=== PATIENT | male | born 1970 | race Caucasian/White ===

== ENCOUNTER 2022-05-09 16:45 | Emergency (ER) | payer MEDICAID, SELFPAY ==
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
[2022-05-09 16:48] VITALS: BP 129/42; PULSE 80; RESP 18; TEMP 36.6; O2SAT 95
[2022-05-09] MEDS: Ketorolac 30 MG/ML VIAL IM (17:01)
[2022-05-09 19:31] LABS: Kit/Specimen SENT
--- NOTE | 2022-05-09 19:49 | DI.VRAD_ITS ---
PROCEDURE INFORMATION: Exam: XR Lumbosacral Spine Exam date and time: 05/09/2022 7:30 PM Age: 51 years old Clinical indication: Other: Trauma TECHNIQUE: Imaging protocol: Radiologic exam of the lumbosacral spine. Views: 2 or 3 views. COMPARISON: No relevant prior studies available. FINDINGS: Bones/joints: No acute fracture or subluxation. Disc spaces are well preserved. Soft tissues: Unremarkable. IMPRESSION: No acute bony pathology. Dictated and Authenticated by: Bre Roque MD. Ordering:PIEDAD Calle MD
--- OUTSIDE RECORDS SUMMARY | 2022-05-09 21:50 | XMS_ITS | Continuity of Care Document ---
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 Name Role Phone Stevo Clemente DO Primary Care Physician Encounter [facility] NBR [id number] Date(s): 01/21/22 - 01/21/22 [facility] [address], [place] [address] Encounter Diagnosis Chronic obstructive lung disease(Discharge Diagnosis) - 01/21/22 Chronic pain(Discharge Diagnosis) - 01/21/22 Low back pain(Discharge Diagnosis) - 01/21/22 Discharge Disposition: Home or Self Care Attending Physician: Stevo Clemente DO Allergies, Adverse Reactions, Alerts Substance Reaction Severity Status amitriptyline thick tongue Moderate Active Assessment and Plan Future Appointments Functional Status 01/21/22 Other exposure to Infectious Disease Non e Immunizations Given and Recorded Vaccine Date Status Refusal Reason Td(adult) unspecified formulation 09/03/15 Recorde d tetanus/diphth/pertuss (Tdap) adult/adol 11/15/10 Recorded Medications Advair HFA 115 mcg-21 mcg/inh inhalation aerosol 12 g, inhale 2 puffs by mouth and INTO THE LUNGS twice a day, 0 Refill(s) Start Date: 01/17/22 Status: Ordered MS Contin 15 mg oral tablet, extended release 15 mg = 1 tab, Oral, every 12 hr, # 60 tab, 0 Refill(s), Pharmacy: [facility] #[id number] Start Date: 01/07/22 Stop Date: 02/06/22 Status: Ordered multivitamin adult, oral tablet 1 tab, Oral, Daily, 0 Refill(s) Start Date: 01/17/22 Status: Ordered omeprazole 20 mg oral delayed release capsule 20 mg = 1 cap, Oral, Daily, 30 minutes before morning meal, # 30 cap, 0 Refill(s) Start Date: 01/17/22 Status: Ordered oxyCODONE 10 mg oral tablet 10 mg = 1 tab, Oral, every 8 hr, PRN pain, # 90 tab, 0 Refill(s), Pharmacy: [facility] #[id number] Start Date: 01/15/22 Stop Date: 02/14/22 Status: Ordered ProAir HFA 90 mcg/inh inhalation aerosol See Instructions, inhale 1 puff by mouth every 4 hours if needed, # 8.5 g, 3 Refill(s), Pharmacy: [facility] #[id number] Start Date: 01/02/22 Status: Ordered Problem List Condition Confirmation Course Effective Dates Status Health [facility] Informant Ankle pain Confirmed Active Chronic obstructive lung disease Confirmed Active Chronic pain Confirmed Active Low back pain Confirmed Active Smoker Confirmed Active Tinnitus of left ear Confirmed Active Vital Signs Most recent to oldest [Reference Range]: 1 Peripheral Pulse Rate [60-100 bpm] 81 bp m (01/21/22 8:42 AM) Blood Pressure [90-140/60-90 mmHg] 128/7 8mmHg (01/21/22 8:42 AM) Weight 115 kg (01/21/22 8:42 AM) Weight Measured (lbs) 253.531 lb (01/21/22 8:42 AM) Social History Social History Type Response Tobacco Current everyday tob acco user Tobacco Use:. 7-10 a day per day. Sex Hospital Discharge Instructions Follow Up Care 01/03/2022 07:16:20 With:Stevo Clemente DO Address: [address] [place] [id number] When:6 Months Physician Outpatient Note * Stevo Clemente DO: PERFORM Event Display: Office Clinic Note Physician Authored Date: [id number] SHIRA GAFFNEY :1970 Age:51 years Sex:Male Visit Date:01/21/2022 Primary Care Physician: Stevo Clemente DO Chief Complaint Follow up [facility] History of Present Illness Patient is a 51-year-old male who comes in today for follow-up.?? He says he feels well.?? He has no specific concerns. Pulmonary: Using his inhalers as prescribed.?? He feels that his breathing is pretty good. Musculoskeletal: Taking his analgesics as prescribed.?? He says that it helps him remain functional.?? Feels that the dose is adequate. Review of Systems See HPI otherwise negative. Physical Exam Vitals & Measurements HR:??81??(Peripheral)?? BP:??128/78?? SpO2:??94%?? WT:??115??kg?? General: Alert and oriented, well nourished,?No??acute distress Lungs:??Clear??to auscultation and percussion,?Non-labored?? respiration Heart:?Normal?? rate,?Regular??rhythm,?No??murmur,?No??gallop,?No??edema Musculoskeletal:?Normal?? range of motion and strength,?No??tenderness,?No??swelling Psychiatric: Cooperative, appropriate mood and affect Assessment/Plan 1.??Chronic obstructive lung disease??J44.9 Breathing is at baseline.?? We will continue current regimen.?? We will follow- up in 6 months or sooner as needed. 2.??Chronic pain??G89.29 Symptoms are reasonably well controlled.?? Continue current analgesic regimen. 3.??Low back pain??M54.50 Follow Up Instructions With When Contact Information Stevo Clemente, DO Within 6 Months [address] [place] [address] Additional Instructions: Problem List/Past Medical History Ongoing Ankle pain Chronic obstructive lung disease Chronic pain Low back pain Smoker Tinnitus of left ear Historical No qualifying data Medications Advair HFA 115 mcg-21 mcg/inh inhalation aerosol MS Contin 15 mg oral tablet, extended release, 15 mg= 1 tab, Oral, every 12 hr multivitamin adult, oral tablet, 1 tab, Oral, Daily omeprazole 20 mg oral delayed release capsule, 20 mg= 1 cap, Oral, Daily oxyCODONE 10 mg oral tablet, 10 mg= 1 tab, Oral, every 8 hr, PRN ProAir HFA 90 mcg/inh inhalation aerosol, See Instructions Allergies amitriptyline??(thick tongue) Social History Alcohol Current, Beer- Comments: 12 a week. Electronic Cigarette/Vaping Electronic Cigarette Use: Never. Tobacco Current everyday tobacco user Tobacco Use:. 7-10 a day per day. Immunizations Vaccine Date Status Td(adult) unspecified formulation 09/03/2015 Recorded tetanus/diphth/pertuss (Tdap) adult/adol 11/15/2010 Recorded Electronically Signed on 01/21/22 09:01 AM Stevo Clemente DO Patient Care team information Personnel Name: Stevo Clemente DO Address: Address: [address] [place] [id number]
--- OUTSIDE RECORDS SUMMARY | 2022-05-09 21:50 | XMS_ITS ---
Author Name Stevo Posey Address [address], [place] [id number] Organization [facility] Address [address], [place] [id number] Care Team Providers Care Bradder Name Role Phone Stevo Posey Unavailable [phone] PROBLEMS Type Condition ICD9-CM Code AID69-KG Code Onset Dates Condition Status SNOMED Code Problem Smoker F17.200 Active 28409039 Problem Chronic obstructive pulmonary disease, unspecified COPD type J44.9 Active 72958862 Problem Low back pain M54.5 Active 595655815 Problem Pain in right ankle and joints of right foot M25.571 Active 540407396 Problem Other chronic pain G89.29 Active 07157947 Problem Tinnitus of left ear H93.12 Active [id number] ALLERGIES Substance Reaction Event Type Date Status Amitriptyline HCl thick tongue Drug Allergy June, A ctive ENCOUNTERS Encounter Location Date Diagnosis [facility] [address] [place] [address] [id number] Oct, Other chronic pain G89.29 [facility] [address] [place] [address] [id number] Oct, Other chronic pain G89.29 [facility] [address] [place] [address] [id number] Oct, [facility] [address] [place] [address] [id number] Sep, Other chronic pain G89.29 [facility] [address] [place] [address] [id number] Sep, Other chronic pain G89.[address] [id number] Sep, Other chronic pain G89.[address] [id number] Aug, Other chronic pain G89.[address] [id number] Jul, Other chronic pain G89.29 [facility] [address] [id number] June, Pedal edema R60.0 ; Chronic obstructive pulmonary disease, unspecified COPD type J44.9 ; Low back pain M54.5 and Other chronic pain G89.[address] [id number] June, Other chronic pain G89.[address] [id number] May, Other chronic pain G89.[address] [id number] Apr, Other chronic pain G89.[address] [id number] Mar, Chronic obstructive pulmonary disease, unspecified COPD type J44.[address] [id number] Mar, Low back pain M54.5 ; Chronic obstructive pulmonary disease, unspecified COPD type J44.9 and Smoker F17.[address] [id number] Mar, Other chronic pain G89.[address] [id number] Feb, Other chronic pain G89.[address] [id number] Feb, Other chronic pain G89.[address] [id number] Jan, Other chronic pain G89.[address] [id number] Jan, Other chronic pain G89.[address] [id number] Dec, Other chronic pain G89.29 and Heartburn R12 [address] [id number] Nov, Other chronic pain G89.[address] [id number] Oct, Other chronic pain G89.[address] [id number] Oct, 2020 Other chronic pain G89.[address] [id number] Sep, Other chronic pain G89.[address] [id number] Aug, Other chronic pain G89.[address] [id number] Aug, [address] [id number] Aug, [address] [id number] Jul, [address] [id number] Jul, 2020 Other chronic pain G89.29 and SOB (shortness of breath) on exertion R06.[address] [id number] 07 Jul, 2020 Other chronic pain G89.29 and Low back pain M54.[address] [id number] June, Low back pain M54.5 and Other chronic pain G89.[address] [id number] May, Low back pain M54.5 and Other chronic pain G89.[address] [id number] Apr, Other chronic pain G89.29 and Low back pain M54.[address] [id number] Apr, Low back pain M54.5 ; Other chronic pain G89.29 and Pain in right ankle and joints of right foot M25.571 [facility] [address] [id number] Mar, 2020 Other chronic pain G89.29 and Low back pain M54.[address] [id number] Feb, 2020 Other chronic pain G89.29 and Low back pain M54.[address] [id number] 15 Jan, 2020 Other chronic pain G89.29 and Low back pain M54.[address] [id number] Jan, Low back pain M54.5 and Pain in right ankle and joints of right foot M25.[address] [id number] Dec, Other chronic pain G89.29 and Low back pain M54.[address] [id number] Nov, Other chronic pain G89.29 and Low back pain M54.[address] [id number] Oct, Other chronic pain G89.29 and Low back pain M54.[address] [id number] Oct, Low back pain M54.5 and Other chronic pain G89.[address] [id number] Sep, Other chronic pain G89.29 and Low back pain M54.[address] [id number] Aug, Other chronic pain G89.29 and Low back pain M54.[address] [id number] Jul, [address] [id number] Jul, Other chronic pain G89.29 and Low back pain M54.[address] [id number] Jul, Other chronic pain G89.29 and Low back pain M54.[address] [id number] June, [facility] [address] [place] [address] [id number] June, Other chronic pain G89.29 [facility] [address] [place] [address] [id number] May, [facility] [address] [id number] May, Other chronic pain G89.29 [facility] [address] [id number] Apr, Low back pain M54.5 and Other chronic pain G89.29 [facility] [address] [place] [address] [id number] Apr, Low back pain M54.5 and Other chronic pain G89.29 [facility] [address] [id number] Mar, Low back pain M54.5 and Other chronic pain G89.29 [facility] [address] [id number] Feb, Other chronic pain G89.[address] [id number] Feb, Low back pain M54.[address] [id number] Feb, Low back pain M54.[address] [id number] Jan, Low back pain M54.5 and Other chronic pain G89.[address] [id number] Jan, Other chronic pain G89.29 [facility] [address] [id number] Dec, [address] [id number] Dec, [facility] [address] [id number] Dec, Low back pain M54.5 and Other chronic pain G89.[address] [id number] Dec, [address] [id number] Dec, Other chronic pain G89.29 [facility] [address] [id number] Nov, [facility] [address] [place] [address] [id number] Nov, Other chronic pain G89.29 [facility] [address] [place] [address] [id number] Oct, [facility] [address] [id number] Oct, Other chronic pain G89.29 [facility] [address] [id number] Sep, Other chronic pain G89.29 [facility] [address] [place] [address] [id number] Sep, Low back pain M54.5 and Other chronic pain G89.29 [facility] [address] [place] [address] [id number] Sep, Other chronic pain G89.[address] [id number] Aug, Other chronic pain G89.[address] [id number] Jul, Other chronic pain G89.29 [facility] [address] [place] [address] [id number] June, Low back pain M54.5 [facility] [address] [id number] June, [address] [id number] June, Pain in right ankle and joints of right foot M25.571 and Low back pain M54.[address] [id number] June, Other chronic pain G89.29 [facility] [address] [place] [address] [id number] May, Other chronic pain G89.29 [facility] [address] [place] [address] [id number] May, Other chronic pain G89.29 [facility] [address] [place] [address] [id number] Apr, Other chronic pain G89.29 [facility] [address] [place] [address] [id number] Mar, Other chronic pain G89.29 and Low back pain M54.5 [facility] [address] [place] [address] [id number] Feb, [facility] [address] [id number] Feb, [facility] [address] [id number] Jan, Other chronic pain G89.[address] [id number] Jan, Other chronic pain G89.[address] [id number] Jan, Other chronic pain G89.29 [facility] [address] [id number] Dec, Other chronic pain G89.29 [facility] [address] [id number] Dec, Other chronic pain G89.[address] [id number] Nov, Low back pain M54.5 ; Pain in right ankle and joints of right foot M25.571 and Other chronic pain G89.[address] [id number] Nov, Other chronic pain G89.[address] [id number] Nov, [address] [id number] Nov, Other chronic pain G89.[address] [id number] Nov, Dog bite W54.0XXA [facility] [address] [id number] Oct, Other chronic pain G89.29 [facility] [address] [id number] Sep, Other chronic pain G89.29 [facility] [address] [place] [address] [id number] Aug, Low back pain M54.5 and Other chronic pain G89.[address] [id number] Aug, Other chronic pain G89.29 [facility] [address] [id number] Jul, Other chronic pain G89.29 [facility] [address] [place] [address] [id number] June, Other chronic pain G89.29 [facility] [address] [id number] May, Low back pain M54.5 and Other chronic pain G89.[address] [id number] May, Other chronic pain G89.[address] [id number] Apr, Other chronic pain G89.29 [facility] [address] [id number] Mar, Other chronic pain G89.[address] [id number] Feb, Other chronic pain G89.29 and Low back pain M54.[address] [id number] Jan, Low back pain M54.[address] [id number] Dec, [address] [id number] Dec, [address] [id number] Dec, Low back pain M54.[address] [id number] Nov, Low back pain M54.5 ; Other chronic pain G89.29 ; Pain in right ankle and joints of right foot M25.571 ; Tinnitus of left ear H93.12 and Acute nasopharyngitis J00 [address] [id number] Oct, Low back pain M54.[address] [id number] Aug, Low back pain M54.[address] [id number] Jul, Low back pain M54.[address] [id number] Jul, Low back pain M54.5 and Other chronic pain G89.[address] [id number] June, [facility] [address] [id number] June, [facility] [address] [id number] May, [address] [id number] Apr, Low back pain M54.5 ; Pain in right ankle and joints of right foot M25.571 and Other chronic pain G89.[address] [id number] Mar, [address] [id number] Mar, [address] [id number] Feb, [address] [id number] Jan, [address] [id number] Jan, Low back pain M54.[address] [id number] Dec, [address] [id number] Nov, [address] [id number] Oct, Low back pain M54.[address] [id number] Oct, [address] [id number] Sep, [address] [id number] Aug, [address] [id number] Aug, Low back pain M54.5 and Dog bite, initial encounter W54.0XXA [address] [id number] Jul, Low back pain M54.[address] [id number] June, DDD (degenerative disc disease), lumbar M51.[address] [id number] June, [address] [id number] May, IMMUNIZATIONS Vaccine Route Administration Date Status Td -Adult IM Intramuscular September 03, 2015 Administer ed Tdap - Adult Unknown Nov 15, 2010 Administered SOCIAL HISTORY Qualifiers Date Current Smoker REASON FOR REFERRAL FUNCTIONAL STATUS PLAN OF CARE Activity Details VITAL SIGNS Height 66 in 2021-07-16 Height 66 in 2021-04-09 Height 66 in 2021-01-07 Height 66 in 2020-08-14 Height 66 in 2020-04-17 Height 66 in 2020-01-18 Height 66 in 2019-10-19 Height 66 in 2019-07-19 Height 66 in 2019-04-18 Height 66 in 2019-01-11 Height 66 in 2018-10-14 Height 66 in 2018-07-06 Height 66 in 2018-04-08 Height 66 in 2017-12-08 Height 66 in 2017-09-07 Height 66 in 2017-06-08 Height 66 in 2017-03-10 Height 66 in 2016-12-03 Height 66 in 2016-07-18 Height 66 in 2016-04-17 Height 66 in 2016-01-17 Height 66 in 2015-11-08 Height 66 in 2015-09-03 Height 66 in 2015-08-09 Height 66 in 2015-07-10 Weight 271.4 lbs 2021-07-16 Weight 258.0 lbs 2021-04-09 Weight 251.0 lbs 2021-01-07 Weight 328 lb 2 oz lbs 2020-08-14 Weight 257 lbs 2020-04-17 Weight 251.0 lbs 2020-01-18 Weight 238 lbs 2019-10-19 Weight 231.8 lbs 2019-07-19 Weight 234.6 lbs 2019-04-18 Weight 235.2 lbs 2019-01-11 Weight 223 lbs 2018-10-14 Weight 242.4 lbs 2018-07-06 Weight 249.2 lbs 2018-04-08 Weight 252.2 lbs 2017-12-08 Weight 257 lbs 2017-09-07 Weight 241.6 lbs 2017-06-08 Weight 237.2 lbs 2017-03-10 Weight 238.2 lbs 2016-12-03 Weight 242.2 lbs 2016-07-18 Weight 237.8 lbs 2016-04-17 Weight 242 lbs 2016-01-17 Weight 230.8 lbs 2015-11-08 Weight 230 lb 4 oz lbs 2015-09-03 Weight 224 lb 0 oz lbs 2015-08-09 Weight 222 lb 8 oz lbs 2015-07-10 Temperature 97.7 degrees Fahrenheit Temperature 97.0 degrees Fahrenheit Temperature 97.9 degrees Fahrenheit Temperature 96.7 degrees Fahrenheit Temperature 97.5 degrees Fahrenheit Heart Rate 68 /min 2021-07-16 Heart Rate 103 /min 2021-04-09 Heart Rate 98 /min 2021-01-07 Heart Rate 78 /min 2020-08-14 Heart Rate 100 /min 2020-04-17 Heart Rate 91 /min 2020-01-18 Heart Rate 90 /min 2019-10-19 Heart Rate 73 /min 2019-07-19 Heart Rate 91 /min 2019-04-18 Heart Rate 66 /min 2019-01-11 Heart Rate 93 /min 2018-10-14 Heart Rate 78 /min 2018-07-06 Heart Rate 90 /min 2018-04-08 Heart Rate 75 /min 2017-12-08 Heart Rate 88 /min 2017-09-07 Heart Rate 97 /min 2017-06-08 Heart Rate 92 /min 2017-03-10 Heart Rate 80 /min 2016-12-03 Heart Rate 78 /min 2016-07-18 Heart Rate 89 /min 2016-04-17 Heart Rate 76 /min 2016-01-17 Heart Rate 111 /min 2015-11-08 Heart Rate 90 /min 2015-09-03 Heart Rate 96 /min 2015-08-09 Heart Rate 118 /min 2015-07-10 Oximetry 95 2021-07-16 Oximetry 95 2021-04-09 Oximetry 94 2021-01-07 Oximetry 97 2020-08-14 Oximetry 96 2020-04-17 Oximetry 94 2020-01-18 Oximetry 96 2019-10-19 Oximetry 98 2019-07-19 Oximetry 94 2019-04-18 Oximetry 97 2019-01-11 Oximetry 98 2018-10-14 Oximetry 96 2018-07-06 Oximetry 95 2018-04-08 Oximetry 93 2017-12-08 Oximetry 96 2017-09-07 Oximetry 95 2017-06-08 Oximetry 98 2017-03-10 Oximetry 97 2016-12-03 Oximetry 97 2016-07-18 Oximetry 97 2016-04-17 Oximetry 96 2016-01-17 Oximetry 98 2015-11-08 Oximetry 97 2015-09-03 Oximetry 97 2015-08-09 Oximetry 97 2015-07-10 BMI 43.80 kg/m2 2021-07-16 BMI 41.64 kg/m2 2021-04-09 BMI 40.51 kg/m2 2021-01-07 BMI 52.95 kg/m2 2020-08-14 BMI 41.48 kg/m2 2020-04-17 BMI 40.51 kg/m2 2020-01-18 BMI 38.41 kg/m2 2019-10-19 BMI 37.41 kg/m2 2019-07-19 BMI 37.86 kg/m2 2019-04-18 BMI 37.96 kg/m2 2019-01-11 BMI 35.99 kg/m2 2018-10-14 BMI 39.12 kg/m2 2018-07-06 BMI 40.22 kg/m2 2018-04-08 BMI 40.70 kg/m2 2017-12-08 BMI 41.48 kg/m2 2017-09-07 BMI 38.99 kg/m2 2017-06-08 BMI 38.28 kg/m2 2017-03-10 BMI 38.44 kg/m2 2016-12-03 BMI 39.09 kg/m2 2016-07-18 BMI 38.38 kg/m2 2016-04-17 BMI 39.06 kg/m2 2016-01-17 BMI 37.25 kg/m2 2015-11-08 BMI 37.16 kg/m2 2015-09-03 BMI 36.15 kg/m2 2015-08-09 BMI 35.91 kg/m2 2015-07-10 Blood pressure systolic 148 mm Hg Blood pressure diastolic 88 mm Hg 2021-06 MEDICATIONS Medication Instructions Dosage Frequency Start Date End Date Duration Status ProAir HFA 108 (90 Base) MCG/ACT INHALE 1 PUFF BY MOUTH IF NEEDED EVERY 4 HOURS 33 33 Active Advair HFA 115-21 MCG/ACT Inhalation Twice a day 2 puffs 12h Mar, Active Multivitamin - Orally Once a day 1 tablet 24h 30 day(s) Active Ipratropium-Albu terol 0.5-2.5 (3) MG/3ML Inhalation every 8 hours 3 ml as needed 8h Mar, Active Omeprazole 20 MG take 1 capsule by mouth 30 MINUTES before MORNING MEAL 90 Active MS Contin 15 MG Orally every 12 hrs 1 tablet 12h 20 Oct, 2021 30 days Active oxyCODONE HCl 10 MG Orally every 8 hours prn pain, 1 tablet as needed Oct, 30 days Active PROCEDURES Procedure Date Ordered Result Body Site 1 BODYTEMP >=35.5CW/IN 30MIN September 03, 2015 RESULTS Name Result Date Reference Range CT CHEST WO CONTRAST 2020-08-23 DRUG SCREEN URINE AMERITOX SEND OUT URINE DRUG SCREEN NCPC PPX Neg PCP Neg MDMA Neg AMP Neg MTD Neg BAR Neg BUP Neg OXY Neg TCA Neg mAMP Neg BZO Neg MOP Neg THC Neg GENEVA Neg Creatinine 200 SP. GRAVITY 1.005 PH 5 Temp 94 URINE DRUG SCREEN NCPC PPX Neg PCP Neg MDMA Neg AMP Neg MTD Neg BAR Neg BUP Neg OXY Neg TCA Neg mAMP Neg BZO Neg MOP Neg THC POSITIVE GENEVA Neg Creatinine NEGATIVE1.005 SP. GRAVITY 1.005 PH 5 Temp 92 REASON FOR VISIT F/U, RF- Oxycodone 10 mg, RF- MS Contin 15 mg, NS #1 , PC - 3 mo f/u, Oxycodone refill , Morphine rx, Morphine/oxycodone refills , RF-oxycodone 10 mg, MS Contin 15 mg, Multiple Refills , pc 3m f/u, Pt states that he has been having bilateral pain in his legs, states that it pretty much happened over night, states that if he pressed on his legs it feels like he has a bruise but dosn't, states thathis legs have been bothering him for over a week now, Rf-MS Contin, oxycodone, RF- MS Contin 15 mg,Oxy 10mg, Refill Oxycodone, MARILIA Paz request, PC 3M F/U, oxyCODONE RF, Morphine RF, Oxycodone RF , Morphine RF , RF oxyCODONE HCl 10 MG Tablet, PC - Med F/U, Pt states that he would like something for acid redlux, states that he has been trying one a day and it hasn't been working, states he needs something stronger, Pt needs refills, last time his pain meds were filled was on 12/10 , Uses [facility] in [place] , Morphine RF , pc 3m f/u, refills/patient has called twice, Mprphine RF, Oxycodone RF , OXycodone/Morphine, PFT test, PFT-complete, CT results, PFT, Pc- 3 month f/u, Pt wants to discuss with you, Pt would like to discuss the Covid shot, Morphine/Oxycodone RF , 3M F/U, Morphine/Oxy RF , Morphine/Oxycodone RF, Morphine/Oxycodone RF , 3 mo f/u, Pt does smell of alchol, reports back pain and some joint pain. No concerns at this time, Morphine/Oxycodone RF , MsContin/Oxycodone RF, Morphine/Oxycodone RF, PC - 3 mo f/u, Oxy/Morphine RF , Morphine/Oxycodone RF , MSContin/Oxycocone RF, PC - 3 mo f/u, Controlled refills, multi - RF (CB*), Oxycodone, Oxycodone & MS Contin RF, pc 3 mo f/u, Morphine/Oxycodone RF, Morphine/Oxycodone - RF, PC- UDS/Will walk in, Morphine/Oxycodone RF (CB), MSContin/Oxycodone RF, PC - 3mo f/u, Morphine/Oxycodone RF, Morphine RF, Oxycodone RF, Oxycodone RF, MsContin/Oxycodone RF, Morphine RF, Percocet/Oxycodone RF, prescription, PC - 3mo f/u,Percocet RF, Morphine RF, Percocet RF, Morphine Refill, Percocet RF , MsContin RF, Rx Request Oxycodone-Acetaminophen 5-325 MG Tablet, pc f/u, Refill , Morphine refill, Morphine RF , pc uds, Did not come 07/07/18, PC 3 MO F/U, 5 pound weight loss plan, oxycodone RF, Morphine RF, Morphine RF, Morphine RF, PC- 3 month f/u, Morphine RF, triage/? flu, pc 3 mo f/u - cxld not feeling well - will call back to r/s, morphine out of stock, Morphine , Morphine RF, Morphine RF, Morphine RF, pc 3 mo f/u, Morphine RF, rx issue, Morphine RF (LM), [facility] Referral, MsContin RF, MsContin RF, pc 3 mo f/u,Morphine RF, Morphine RF, Morphine RF, pc 3 mo f/u, Morphine, Refill Morphine, Refill Morphine, PC 3MO MED F/U, Refill Morphine, RX messed up, Rx issue (out), morphine refill, PC 3 MO F/U, Refill MS Contin, PC 3 MO F/U, morphine refill, Refill MS Contin , PC MED F/U, Refill MS Contin , Refill Morphine, Refill Morphine, PC 3 MO F/U MED, refill+, lost med, refill request #, script refill , PC/3 MO FUV, script refill , script refill , pc 2 mo f/u, Refills, script refill , redness, PC/4 WK FUV, PC/4 WK FUV, PC/ENAMEL FINISHER, EMR update, Needs ENAMEL FINISHER appointment Insurance Providers Health Insurance Type Health Plan Insurance Address Health Plan Insurance Phone Health Plan Insurance Name Health Plan Coverage Dates Member ID Patient Relationship to Subscriber Patient Address Patient Phone Patient Name Patient Date of Subscriber ID Subscriber Name Subscriber Date of Group No [place] [address] [facility] [phone] [place] self Matty Coker [id number] [place] [address] [facility] [id number] [place] self Matty Coker [id number]
== END 2022-05-09 20:28 ==
LOC: ER 21:49
PROVIDERS: Emergency Provider Emergency Medicine
DX: S39.012A Strain of muscle, fascia and tendon of lower back, initial encounter (principal); R04.0 Epistaxis; W03.XXXA Other fall on same level due to collision with another person, initial encounter; G89.29 Other chronic pain
CPT/HCPCS: 96372; 99284; 72100; J1885

== ENCOUNTER 2023-03-20 03:51 | Outpatient (CLI) | payer OTHER, SELFPAY ==
--- NOTE | 2023-03-20 09:14 | W.PFT ---
Date of service: 03/20/23 Time of Service: 08:01 Pulmonary Function Test Result Indications: Dyspnea Interpretation Spirometry: There is moderate airflow limitation. There is significant bronchodilator response. Lung Volumes: There is hyperinflation and air trapping. Diffusion Capacity: Normal diffusion. Airway Pressure: Increased airways resistance Impression There is moderate airflow obstruction with and bronchodilator response, air trapping and a normal diffusion. This could represent COPD (chronic bronchitis) or asthma-COPD overlap syndrome. Clinical Correlation therefore is recommended.
[2023-03-20] MEDS: Inhaler, Assist Device 1 EACH MC (09:32)
[2023-03-20] MEDS: Levalbuterol HFA 15 GM INH 4 PUFF IH (09:32)
== END 2023-03-20 03:52 | disposition home or self-care (01) ==
LOC: RT 03:51
PROVIDERS: Visit Provider Nurse Practitioner Adult Health
DX: J45.909 Unspecified asthma, uncomplicated (principal); R94.2 Abnormal results of pulmonary function studies
CPT/HCPCS: 94060; 94726; 94729

== ENCOUNTER 2024-05-13 03:09 | Emergency (ER) | payer OTHER, SELFPAY ==
[2024-05-13] VITALS (41 sets, daily range): BP systolic 100–138; BP diastolic 43–83; PULSE 92–126; RESP 12–40; TEMP 36.8–38.2; O2SAT 88–100
--- NOTE | 2024-05-13 03:00 | RT.EKG_ITS ---
APPROVED REPORT Exam: Resting ECG Reason for Exam: SOB Patient Location: E HR:124 bpm ECG Measurements Heart Rate 124 AXIS MD [id number] P [id number] QRSd 101 QRS 88 QT 326 T -25 QTc 468 Conclusion limited interp 2/t artifact; repeat requested no clear indication of occlusive [place]
--- NOTE | 2024-05-13 03:15 | RT.EKG_ITS ---
APPROVED REPORT Exam: Resting ECG Reason for Exam: sob Patient Location: E HR:119 bpm ECG Measurements Heart Rate 119 AXIS MI [id number] P [id number] QRSd 97 QRS 84 QT 333 T -3 QTc 469 Conclusion sinus tachycardia no ST segment or T wave abnormalities to suggest occlusive [place]
[2024-05-13] MEDS: Albuterol/Ipratropium 3 ML UPD VIAL UPD (03:18)
[2024-05-13] MEDS: cefTRIAXone 1 GM/50 ML BAG IVPB (03:20)
[2024-05-13] MEDS: methylPREDNISolone SUCC 125 MG VIAL IVP (03:22)
[2024-05-13 03:25] LABS: BE (Venous) 3 mmol/L (-2-3); HCO3 (Venous) 28 mmol/L (23-28); O2 Sat (Venous) 67 %; TCO2 (Venous) 26 mmol/L (24-29); pCO2 (Venous) 49 mmHg (41-51); pH (Venous) 7.37 (7.31-7.41); pO2 (Venous) 35 mmHg
[2024-05-13 03:26] LABS: Abs Immature Grans 0.03 10^3/uL (0.0-0.06); Absolute Basophil Count 0.05 10^3/uL (0.0-0.2); Absolute Eosinophil Count 0.26 10^3/uL (0.0-0.7); Absolute Lymphocyte Count 0.78 10^3/uL (1.2-3.4); Absolute Monocyte Count 0.75 10^3/uL (0.1-0.8); Basophils % 0.4 %; Eosinophils % 2.1 %; HCT 38.1 % (40.0-50.0); HGB 12.6 g/dL (13.5-17.5); Immature Grans % 0.2 %; Lymphocytes % 6.3 %; MCH 30.9 pg (27.0-33.0); MCHC 33.1 % (32.0-36.0); MCV 93 fL (80-95); MPV 9.1 fL (8.0-11.0); Platelet Count 222 10^3/uL (130-400); RBC 4.08 10^6/uL (4.36-5.78); RDW 12.4 % (11.8-14.1); WBC 12.43 10^3/uL (4.4-10.8)
[2024-05-13 03:27] LABS: Absolute Neutrophil Count 10.57 10^3/uL (1.2-6.7)
[2024-05-13 03:28] LABS: Lactate 1.8 mmol/L (<or=2.0)
[2024-05-13 03:49] LABS: ALT 26 U/L (16-63); AST 17 U/L (15-37); Alkaline Phosphatase 80 U/L (46-116); Anion Gap 7.1 mmol/L (3-11); BUN 10 mg/dL (7-18); Bilirubin, Total 0.5 mg/dL (0.2-1.0); CO2 29.9 mmol/L (21.0-32.0); CREATININE 0.9 mg/dL (0.70-1.30); Calcium 9.2 mg/dL (8.5-10.1); Chloride 103 mmol/L (98-107); Estimated GFR 102.12 (mL/min/1.73m2); Glucose 147 mg/dL (74-106); NT-proBNP 252 pg/mL (<300); Potassium 4.2 mmol/L (3.5-5.1); Sodium 140 mmol/L (136-145); Troponin I 14 ng/L (<or=76)
[2024-05-13] MEDS: AZITHROMYCIN 500 MG in Normal Saline 250 ML 250 MG IVPB (03:51)
[2024-05-13] MEDS: ACETAMINOPHEN 1,000 MG/100 ML BAG 400 MG IVPB (04:01)
[2024-05-13] MEDS: Normal Saline 1,000 ML 1000 ML IV (04:05)
[2024-05-13] MEDS: MAGNESIUM SULFATE 1 GM/100 ML BAG IV_INF (04:06)
[2024-05-13 04:16] LABS: COVID-19 PCR Negative (Negative); Influenza A PCR Negative (Negative); Influenza B PCR Negative (Negative); RSV PCR Negative (Negative)
--- NOTE | 2024-05-13 04:16 | DI.RAD_ITS ---
Exam(s) XR PORTABLE CHEST AP EXAM: XR PORTABLE CHEST AP CLINICAL HISTORY: sob. TECHNIQUE: 2D digital imaging was performed. COMPARISON: No exams were available for comparison FINDINGS: Single AP portable view. Heart size is upper normal. The mediastinum is not widened. Lungs are clear. No infiltrates nor obvious pleural effusions. IMPRESSION: No acute pulmonary findings on this single AP portable view of the chest. DATA REPOSITORY: RADIATION DOSE DELIVERED:
[2024-05-13 04:17] LABS: Source Nasopharynx
[2024-05-13] MEDS: ALBUTEROL 15 MG, SODIUM CHLORIDE 0.9% FOR INH. 3 ML UPD (04:20)
[2024-05-13] MEDS: Albuterol 2.5 MG/3 ML INH SOLN VIAL 10 MG UPD (04:20)
--- NOTE | 2024-05-13 04:25 | ED.GENADUL_ITS ---
Discharge Plan Disposition Patient Disposition: [facility] Condition: Good Discharge Details Clinical Impression: COPD (chronic obstructive pulmonary disease), Pneumonia, Acute respiratory failure, Asthma exacerbation Primary Care Provider: Unknown,Unknown ED Provider: Noemí Arreola Home Meds and New Rx's Prescriptions: New prednisone 20 mg tablet 40 mg PO DAILY 5 Days Qty: 10 0RF azithromycin 500 mg tablet 500 mg PO DAILY 7 Days Qty: 7 0RF cefpodoxime 200 mg tablet 200 mg PO BID Qty: 14 0RF Rx Instructions: must administer with a meal/food Continued fluticasone propion-salmeterol [Advair HFA] 115-21 mcg/actuation HFA aerosol inhaler 2 puff inhalation BID albuterol sulfate 90 mcg/actuation HFA aerosol inhaler See Rx Instructions inhalation DIRECTED Rx Instructions: inhaled as directed; buprenorphine HCl 8 mg tablet, sublingual 8 mg sublingual DAILY omeprazole 20 mg capsule,delayed release(DR/EC) 20 mg PO DAILY budesonide-formoterol [Symbicort] 160-4.5 mcg/actuation HFA aerosol inhaler 2 puff inhalation DAILY oxycodone-acetaminophen [Percocet] 10-325 mg Tablet 1 tab PO BID morphine 30 mg Tablet 15 mg PO BID Discharge Instructions Instructions: Pneumonia in adults, Asthma, Adult ED Additional Instructions: Continue to use your inhalers at home. You can use your albuterol up to every 2 hours as needed for shortness of breath. Prednisone once a day for the next 5 days. Antibiotics as prescribed for the next 7 days. Followup with your primary care doctor within the next 48 hours. Return to the emergency department for new or worsening symptoms including if your breathing gets bad again, you have chest pain, feel like you are going to pass out, or if you have any other concerns. Discharge Data Discharge Date/Time-TO BE ENTERED AT DEPARTURE: 05/13/24 06:55 HPI General Mode of arrival: EMS . Date/Time Provider Initiated Documentation: 05/13/24 03:11 . Limitations to Documentation: no limitations . Information obtained by: patient, EMS and old records reviewed . HPI Narrative: 53yo M presenting from nursing home with respiratory distress. Has had about two weeks of cough and shortness of breath. [place] much worse yesterday morning. Overnight breathing became very bad, feels like he can't get enough oxygen. 2 duonebs Has felt like this once before and required hospitalization; has never been intubated or required BIPAP before. No fevers, chills, rash, nausea, vomiting, chest pain, back pain, LE edema, or other concerns. [facility] records reviewed; PFTs report 03/20/23 with COPD vs asthma-COPD overlap. Related Data Home Medications ?Medication ?Instructions ?Recorded ?Confirmed morphine 30 mg immediate release 15 mg PO BID 05/09/22 05/13/24 tablet oxycodone-acetaminophen 10 mg-325 1 tab PO BID 05/09/22 05/13/24 mg tablet (Percocet) albuterol sulfate 90 mcg/actuation See Rx Instructions inhalation 09/24/22 05/13/24 aerosol inhaler DIRECTED buprenorphine HCl 8 mg sublingual 8 mg sublingual DAILY 09/24/22 05/13/24 tablet fluticasone propionate 115 2 puff inhalation BID 09/24/22 05/13/24 mcg-salmeterol 21 mcg/actuation HFA inhaler (Advair HFA) budesonide-formoterol HFA 160 2 puff inhalation DAILY 02/12/23 05/13/24 mcg-4.5 mcg/actuation aerosol inhaler (Symbicort) omeprazole 20 mg capsule,delayed 20 mg PO DAILY 02/12/23 05/13/24 release azithromycin 500 mg tablet 500 mg PO DAILY 7 days #7 tabs 05/13/24 cefpodoxime 200 mg tablet 200 mg PO BID #14 tabs 05/13/24 prednisone 20 mg tablet 40 mg (2 x 20 mg) PO DAILY 5 days 05/13/24 #10 tabs Previous Rx's ?Medication ?Instructions ?Recorded azithromycin 500 mg tablet 500 mg PO DAILY 7 days #7 tabs 05/13/24 cefpodoxime 200 mg tablet 200 mg PO BID #14 tabs 05/13/24 prednisone 20 mg tablet 40 mg (2 x 20 mg) PO DAILY 5 days 05/13/24 #10 tabs Allergies Allergy/AdvReac Type Severity Reaction Status Date / Time adhesive bandage Allergy Unknown Unknown Uncoded 05/13/24 05:02 General Stated Complaint: RespSymp TITI: 3 Review of Systems Narrative: see HPI Exam Narrative Exam Narrative: General: Alert, dyspneic Head: Normocephalic, atraumatic Neck: Trachea midline, ?Neck supple. Cardiac: ?Tachcyardiac, regular, no murmurs appreciated Resp: Increased WOB, retractions, Diffuse wheezing. Poor air movement. Speaking in 1-2 word sentences. Abd: ?Soft, non-distended, nontender : ?No suprapubic tenderness. Extremities: ?No deformities.? No peripheral edema. Neurologic: GCS 15. ? Moves all extremities freely against gravity Course Vital Signs Vital signs: Vital Signs Pulse 124 H 05/13/24 03:08 Respiratory Rate 40 H 05/13/24 03:08 Pulse Oximetry 91 L 05/13/24 03:08 Temperature 38.2 C H 05/13/24 03:17 Temperature Source Oral 05/13/24 03:17 Pulse 118 H 05/13/24 04:16 Pulse 118 H 05/13/24 04:16 Respiratory Rate 28 H 05/13/24 04:16 Respiratory Effort Short of Breath, Accessory Muscle Use, Incrsd Work of Breathing 05/13/24 03:12 Respiratory Depth Shallow 05/13/24 03:12 Blood Pressure 133/63 05/13/24 04:16 Blood Pressure Mean 81 05/13/24 04:16 Pulse Oximetry 92 05/13/24 04:16 Oxygen Delivery Method Room Air 05/13/24 03:14 Oxygen Flow Rate 2 05/13/24 03:14 Fraction of Inspired Oxygen (FIO2) 21 05/13/24 04:09 Lab/Test Results Lab/Test Results: 05/13/24 03:25 Blood Blood Culture - Pending 05/13/24 03:20 Blood Blood Culture - Pending Laboratory Tests Range/Units 05/13/24 05/13/24 03:15 03:20 WBC (4.4-10.8) 10^3/uL 12.43 H RBC (4.36-5.78) 10^6/uL 4.08 L Hgb (13.5-17.5) g/dL 12.6 L Hct (40.0-50.0) % 38.1 L MCV (80-95) fL 93 MCH (27.0-33.0) pg 30.9 MCHC (32.0-36.0) % 33.1 RDW (11.8-14.1) % 12.4 Plt Count (130-400) 10^3/uL 222 MPV (8.0-11.0) fL 9.1 Immature Gran % % 0.2 Neutrophils % % 85.0 Lymphocytes % % 6.3 Monocytes % % 6.0 Eosinophils % % 2.1 Basophils % % 0.4 Nucleated RBC % (0.0-0.3) % 0.0 Absolute Neutrophils (1.2-6.7) 10^3/uL 10.57 H Absolute Lymphocytes (1.2-3.4) 10^3/uL 0.78 L Absolute Monocytes (0.1-0.8) 10^3/uL 0.75 Absolute Eosinophils (0.0-0.7) 10^3/uL 0.26 Absolute Basophils (0.0-0.2) 10^3/uL 0.05 VBG pH (7.31-7.41) 7.37 VBG pCO2 (41-51) mmHg 49 VBG pO2 mmHg 35 VBG HCO3 (23-28) mmol/L 28 VBG Total CO2 (24-29) mmol/L 26 VBG O2 Saturation % 67 VBG Base Excess (-2-3) mmol/L 3 VBG Lactate (<or=2.0) mmol/L 1.8 Sodium (136-145) mmol/L 140 Potassium (3.5-5.1) mmol/L 4.2 Chloride (98-107) mmol/L 103 Carbon Dioxide (21.0-32.0) mmol/L 29.9 Anion Gap (3-11) mmol/L 7.1 BUN (7-18) mg/dL 10 Creatinine (0.70-1.30) mg/dL 0.9 Est GFR (CKD-EPI 2020) (mL/min/1.73m2) 102.12 Glucose (74-106) mg/dL 147 H Calcium (8.5-10.1) mg/dL 9.2 Total Bilirubin (0.2-1.0) mg/dL 0.5 AST (15-37) U/L 17 ALT (16-63) U/L 26 Alkaline Phosphatase (46-116) U/L 80 Troponin I (<or=76) ng/L 14 NT-Pro-B Natriuret Pep (<300) pg/mL 252 Total Protein (6.4-8.2) g/dL 8.0 Albumin (3.4-5.0) g/dL 4.0 COVID-19 Source Nasopharynx SARS-CoV-2 (PCR) (Negative) Negative Influenza Type A (PCR) (Negative) Negative Influenza Type B (PCR) (Negative) Negative RSV (PCR) (Negative) Negative Medical Decision Making 53yo M presenting from nursing home with respiratory distress; two weeks of cough and shortness of breath worse this morning and acutely worse overnight. Two duonebs from EMS prior to arrival. Dyspneic on arrival, sat mid to high 80's on room air, increased WOB, pronounced wheezing with poor air movement. Febrile. Will give 3rd duoneb and start on continuous albuterol, give IV methylpred, IV magnesium, as well as ceftriaxone and azithromycin. Tylenol for fever. Not overtly septic and suspect tachycardia 2/t albuterol and respiratory distress; would not give IVF, blood cultures were drawn and sent. Respiratory therapy paged to initiate biPAP. Not suggestive of pulmonary embolism; would not send dimer or get CTA. -EKG sinus tachycardia, no ST segment or T wave abnormalities to suggest occlusive SD -CXR independently reviewed, questionable right sided infiltrate on my view, radiology read with no acute findings. -Labs reviewed as below, CBC with mild leukocytosis (nonspecific) and anemia, CMP with no actionable abnormalities, Mg normal, lactate normal, BNP not suggestive of heart failure, initial troponin 14 with one hour repeat 8 (would not further pursue ACS). Respiratory viral swab negative. -VBG with no CO2 retention, overall clincial picture currently more suggestive of asthma than COPD On reassessment patient with improved WOB and air movement on BiPAP. Briefly required FiO2 of 40% to maintain sat ~95%, quickly down-titrated. He reports his breathing feels much better. Will maintain on biPAP for a time and allow time for onset of full effect of medication. On reassessment patient has removed biPAP, states his breathing feels much better and he would like to be discharged. Discussed with him risks of recurrent symptoms and he is agreeable to a period of further observation in the ED. Observed off biPAP and albuterol for approximately 2 hours. O2 sat 93+% while awake, does desat to 88% while sleeping (body habitus suggests risk for MIKI and with known COPD 88% acceptable sat). Patient states his breathing feels great and requests discharge which is not unreasonable. With reassuring labs, marked clinical improvement, stable for the last 2 hours, no oxygen requirement, HR improving to 90's-low 100's off albuterol, no indication for hospital admission at this time. Given fever, respiratory symptoms, and questionable pulmonary infiltrate on my CXR read will treat for pneumonia with 7 day course of cefpo and azithromycin, as well as 5 day course of prednisone for asthma/COPD. Discharged; discharge instructions and return precautions were reviewed with patient who verbalized understanding. All questions were answered and he is in full agreement with the plan. Lab Data Lab results reviewed: Yes I reviewed the patient's lab results. Labs: 05/13/24 03:25 Blood Blood Culture - Pending 05/13/24 03:20 Blood Blood Culture - Pending Laboratory Tests Range/Units 05/13/24 05/13/24 05/13/24 03:15 03:20 04:57 WBC (4.4-10.8) 10^3/uL 12.43 H RBC (4.36-5.78) 10^6/uL 4.08 L Hgb (13.5-17.5) g/dL 12.6 L Hct (40.0-50.0) % 38.1 L MCV (80-95) fL 93 MCH (27.0-33.0) pg 30.9 MCHC (32.0-36.0) % 33.1 RDW (11.8-14.1) % 12.4 Plt Count (130-400) 10^3/uL 222 MPV (8.0-11.0) fL 9.1 Immature Gran % % 0.2 Neutrophils % % 85.0 Lymphocytes % % 6.3 Monocytes % % 6.0 Eosinophils % % 2.1 Basophils % % 0.4 Nucleated RBC % (0.0-0.3) % 0.0 Absolute Neutrophils (1.2-6.7) 10^3/uL 10.57 H Absolute Lymphocytes (1.2-3.4) 10^3/uL 0.78 L Absolute Monocytes (0.1-0.8) 10^3/uL 0.75 Absolute Eosinophils (0.0-0.7) 10^3/uL 0.26 Absolute Basophils (0.0-0.2) 10^3/uL 0.05 VBG pH (7.31-7.41) 7.37 VBG pCO2 (41-51) mmHg 49 VBG pO2 mmHg 35 VBG HCO3 (23-28) mmol/L 28 VBG Total CO2 (24-29) mmol/L 26 VBG O2 Saturation % 67 VBG Base Excess (-2-3) mmol/L 3 VBG Lactate (<or=2.0) mmol/L 1.8 Sodium (136-145) mmol/L 140 Potassium (3.5-5.1) mmol/L 4.2 Chloride (98-107) mmol/L 103 Carbon Dioxide (21.0-32.0) mmol/L 29.9 Anion Gap (3-11) mmol/L 7.1 BUN (7-18) mg/dL 10 Creatinine (0.70-1.30) mg/dL 0.9 Est GFR (CKD-EPI 2020) (mL/min/1.73m2) 102.12 Glucose (74-106) mg/dL 147 H Calcium (8.5-10.1) mg/dL 9.2 Total Bilirubin (0.2-1.0) mg/dL 0.5 AST (15-37) U/L 17 ALT (16-63) U/L 26 Alkaline Phosphatase (46-116) U/L 80 Troponin I (<or=76) ng/L 14 8 NT-Pro-B Natriuret Pep (<300) pg/mL 252 Total Protein (6.4-8.2) g/dL 8.0 Albumin (3.4-5.0) g/dL 4.0 COVID-19 Source Nasopharynx SARS-CoV-2 (PCR) (Negative) Negative Influenza Type A (PCR) (Negative) Negative Influenza Type B (PCR) (Negative) Negative RSV (PCR) (Negative) Negative Range/Units 05/13/24 06:18 WBC (4.4-10.8) 10^3/uL RBC (4.36-5.78) 10^6/uL Hgb (13.5-17.5) g/dL Hct (40.0-50.0) % MCV (80-95) fL MCH (27.0-33.0) pg MCHC (32.0-36.0) % RDW (11.8-14.1) % Plt Count (130-400) 10^3/uL MPV (8.0-11.0) fL Immature Gran % % Neutrophils % % Lymphocytes % % Monocytes % % Eosinophils % % Basophils % % Nucleated RBC % (0.0-0.3) % Absolute Neutrophils (1.2-6.7) 10^3/uL Absolute Lymphocytes (1.2-3.4) 10^3/uL Absolute Monocytes (0.1-0.8) 10^3/uL Absolute Eosinophils (0.0-0.7) 10^3/uL Absolute Basophils (0.0-0.2) 10^3/uL VBG pH (7.31-7.41) VBG pCO2 (41-51) mmHg VBG pO2 mmHg VBG HCO3 (23-28) mmol/L VBG Total CO2 (24-29) mmol/L VBG O2 Saturation % VBG Base Excess (-2-3) mmol/L VBG Lactate (<or=2.0) mmol/L Sodium (136-145) mmol/L Potassium (3.5-5.1) mmol/L Chloride (98-107) mmol/L Carbon Dioxide (21.0-32.0) mmol/L Anion Gap (3-11) mmol/L BUN (7-18) mg/dL Creatinine (0.70-1.30) mg/dL Est GFR (CKD-EPI 2020) (mL/min/1.73m2) Glucose (74-106) mg/dL Calcium (8.5-10.1) mg/dL Total Bilirubin (0.2-1.0) mg/dL AST (15-37) U/L ALT (16-63) U/L Alkaline Phosphatase (46-116) U/L Troponin I (<or=76) ng/L Cancelled NT-Pro-B Natriuret Pep (<300) pg/mL Total Protein (6.4-8.2) g/dL Albumin (3.4-5.0) g/dL COVID-19 Source SARS-CoV-2 (PCR) (Negative) Influenza Type A (PCR) (Negative) Influenza Type B (PCR) (Negative) RSV (PCR) (Negative) Quality:SDOH Health Related Social Needs: No Data to Display Critical Care Time Critical Care Time Critical Care Time: Yes Total Critical Care Time: 31 Attestation: Due to a high probability of clinically significant, life threatening deterioration, the patient required my highest level of preparedness to intervene emergently and I personally spent this critical care time directly and personally managing the patient. This critical care time included obtaining a history; examining the patient; pulse oximetry; ordering and review of studies; arranging urgent treatment with development of a management plan; evaluation of patient's response to treatment; frequent reassessment; and, discussions with other providers. This critical care time was performed to assess and manage the high probability of imminent, life-threatening deterioration that could result in multi-organ failure. It was exclusive of separately billable procedures and treating other patients? PFSH All Active Problems (Updated 05/13/24 @ 06:54 by Noemí Arreola MD) Acute respiratory failure (Acute) Pneumonia (Acute) COPD (chronic obstructive pulmonary disease) (Chronic) Asthma exacerbation (Acute) Social History (Updated 02/12/23 @ 12:09 by Anastacia Price) Smoking/Tobacco Use Status: Current every day Tobacco Type: cigarettes Smoking packs per day: 1 Smoking cigarettes per day: 20.0 Smoking risk assessment performed?: Yes Alcohol Intake: current Alcohol Intake frequency: 3 or more drinks per day Alcohol type: hard liquor Substance use type: does not use Do you feel safe at home: Yes Do you feel safe in your relationship?: Yes
--- NOTE | 2024-05-13 04:26 | RESPIRATORY ---
Pt ordered 15mg continuous albuterol. Unable to give heart line in-line with NIV machine. Pt received 5mg continuous with Mini Heart neb, then switched to NIV machine with new order of 10mg in-line albuterol.
[2024-05-13 05:19] LABS: Troponin I 8 ng/L (<or=76)
--- NOTE | 2024-05-13 07:28 | DI.VRAD_ITS ---
PROCEDURE INFORMATION: Exam: XR Chest Exam date and time: 05/13/2024 4:15 AM Age: 53 years old Clinical indication: Shortness of breath TECHNIQUE: Imaging protocol: Radiologic exam of the chest. Views: 1 view. COMPARISON: No relevant prior studies available. FINDINGS: Lungs: Unremarkable. No consolidation. Pleural spaces: Unremarkable. No pleural effusion. No pneumothorax. Heart/Mediastinum: Unremarkable. No cardiomegaly. Bones/joints: Unremarkable. IMPRESSION: No acute findings. Dictated and Authenticated by: Enmanuel Munson MD. Orderin Maxwell Dowd MD
== END 2024-05-13 06:55 ==
PROVIDERS: Emergency Provider Student in an Organized Health Care Education/Training Program
DX: J44.1 Chronic obstructive pulmonary disease with (acute) exacerbation (principal); J18.9 Pneumonia, unspecified organism; J96.00 Acute respiratory failure, unspecified whether with hypoxia or hypercapnia; R00.0 Tachycardia, unspecified; Z79.899 Other long term (current) drug therapy
CPT/HCPCS: 80053; 82805; 87040; 87637; 93005; 94640; 96361; 96365; 96367; 96368; 96375; 99285; 71045; 83605; 83880; 84484; 85025; 93010; J0131; J0456; J0696; J2919; J3475; J7613; J7620